=== PATIENT | male | born 1960 | race Caucasian/White ===

== ENCOUNTER 2022-06-02 09:42 | Emergency (ER) | payer BC ==
[~2022-06-02] VITALS: Ht 180.3 cm; Wt 91.8 kg
[2022-06-02] VITALS (12 sets, daily range): BP systolic 148–185; BP diastolic 77–101
[2022-06-02 10:04] LABS: HEMOGLOBIN 14.2 g/dl (14.0-18.0); IMMATURE GRANULOCYTES 0.3 % (0.0-5.0); MEAN CELL VOLUME 91.3 fL CALC (80.0-100.0); MEAN CORPUSCULAR HGB 32.4 pG CALC (26.0-32.0); MEAN CORPUSCULAR HGB CONC 35.5 g/dL CAL (32.0-36.0); NEUT# 3.56 thou/uL (1.82-7.42); RED BLOOD COUNT 4.38 mill/uL (4.70-6.10); RED CELL DISTRI WIDTH 12.1 % (11.5-15.5)
[2022-06-02] MEDS ORDERED: PRAVASTATIN80 MG PO (10:07)
[2022-06-02] MEDS ORDERED: ZESTRIL30 MG PO (10:07)
[2022-06-02] MEDS ORDERED: XARELTO10 MG PO (10:08)
[2022-06-02] MEDS ORDERED: ASPIRIN 81 LOW81 MG PO (10:09)
[2022-06-02 10:44] LABS: ALBUMIN 4.6 g/dL (3.2-5.0); ALKALINE PHOSPHATASE 91 u/l (38-126); ANION GAP 16 (6-22 (CALC)); BUN 12 mg/dL (8-23); BUN/CREATININE RATIO 17 (12-20 (CALC)); CARBON DIOXIDE 22 mmol/l (22-30); CHLORIDE 106 mmol/l (95-108); CREATININE 0.7 mg/dL (0.7-1.3); GFR FOR AFR.AMER. > 60 ML/MIN (>=60 (CALC)); GFR OTHER RACES > 60 ML/MIN (>=60 (CALC)); POTASSIUM 4.3 mmol/l (3.5-5.1); SGOT/AST 67 u/l (19-48); SODIUM 139 mmol/l (137-146); TOTAL PROTEIN 7.2 g/dL (6.3-8.2)
== END 2022-06-02 11:50 | disposition left against medical advice (07) | DRG 916 ==
LOC: ED 09:42
PROVIDERS: Internal Medicine
DX: T78.3XXA Angioneurotic edema, initial encounter (principal); I10 Essential (primary) hypertension; Z91.19 Patient's noncompliance with other medical treatment and regimen